=== PATIENT | female | born 1975 | race Caucasian/White ===

== ENCOUNTER 2016-10-09 15:15 | Emergency (ER) | payer MEDICAID ==
[2016-10-09 17:07] LABS: BASOPHIL % 0.3 % (0-2); PLATELET COUNT 310 x10^3mcL (130-400); RED CELL DISTRIBUTION WIDTH 12.7 % (11.5-14.5)
[2016-10-09 17:08] LABS: CALCIUM 8.5 mg/dL (8.5-10.1); CARBON DIOXIDE 26.6 mmol/L (21-32); CHLORIDE SERUM 104 mmol/L (98-107); CREATININE SERUM 0.7 mg/dL (0.6-1.0); GFR1 > 60 mL/min; GLUCOSE SERUM 114 mg/dL (74-106); POTASSIUM SERUM 3.1 mmol/L (3.5-5.1); SODIUM SERUM 142 mmol/L (136-145)
[2016-10-09 17:12] LABS: ALBUMIN 3.7 g/dL (3.4-5.0); ALKALINE PHOSPHATASE 63 U/L (46-116); ALT/SGPT 37 U/L (14-59); AST/SGOT 21 U/L (15-37); BILIRUBIN TOTAL 0.41 mg/dL (0.20-1.00); CHOLESTEROL 160 mg/dL (<200); CHOLESTEROL/HDL RATIO 3.2; HDL CHOLESTEROL 50 mg/dL (40-60); LIPASE 163 IU/L (73-393); TRIGLYCERIDES 114 mg/dL (<150)
[2016-10-09 17:28] LABS: T3 TOTAL 0.77 ng/mL
[2016-10-09 18:12] LABS: FREE T4 1.02 ng/dL (0.76-1.46); FREE THYROXINE INDEX 2.5 ug/dL (1.4-4.5); T4(THYROXINE) 7.3 ug/dL (4.7-13.3)
[2016-10-09 18:22] LABS: microscopic required? YES; urine erythrocyte NEGATIVE (NEGATIVE)
[2016-10-09 19:00] VITALS: BP 142/89
== END 2016-10-09 19:00 | disposition home or self-care (01) ==
LOC: ED 15:15
PROVIDERS: Specialist
DX: G93.2 Benign intracranial hypertension (principal); E66.9 Obesity, unspecified
CPT/HCPCS: 83880; 84439; J1885; J2405; J3010; J7030; Q0092